=== PATIENT | female | born 1990 | race Caucasian/White ===

== ENCOUNTER 2025-02-03 10:45 | Outpatient (CLI) | payer BC, SELFPAY ==
[2025-02-05 16:04] LABS: HPV Source Vaginal
[2025-02-09 12:54] LABS: Pap Test Digital Imaging Done
== END 2025-02-03 10:46 | disposition home or self-care (01) ==
PROVIDERS: PCP Nurse Practitioner Family; Visit Provider Nurse Practitioner Family
DX: Z00.00 Encounter for general adult medical examination without abnormal findings (principal); L65.9 Nonscarring hair loss, unspecified; R03.0 Elevated blood-pressure reading, without diagnosis of hypertension; Z13.6 Encounter for screening for cardiovascular disorders; Z13.1 Encounter for screening for diabetes mellitus; Z11.51 Encounter for screening for human papillomavirus (HPV); Z12.4 Encounter for screening for malignant neoplasm of cervix
CPT/HCPCS: 80061; 82728; 82947; 84443; 85025; 87624; 87625; 88141; 88142; 88175

== ENCOUNTER 2025-02-20 14:27 | Outpatient (CLI) | payer BC, SELFPAY ==
--- NOTE | 2025-02-20 14:45 | CRLHL7_ITS ---
For Patients: As a result of the Cures Act, medical imaging exams and procedure reports are released immediately into your electronic medical record. You may view this report before your referring provider. If you have questions, please contact your health care provider. CLINICAL HISTORY: pulsatile tinnitus TECHNIQUE: The carotid circulations and the vertebral arteries in the neck were examined with hinkle-scale ultrasound, color-flow and Doppler spectral analysis. Degrees of stenosis were determined using SRU 2002 Consensus Panel Criteria. FINDINGS: Sonographic images demonstrate no evidence of atherosclerotic plaque formation or suspicious soft tissue mass. There was antegrade blood flow demonstrated within the vertebral arteries and the subclavian arteries demonstrated a normal triphasic waveform. The spectral Doppler tracings of the common carotid, internal and external carotid arteries demonstrate no abnormal turbulence or spectral broadening. There was no significant elevation of peak systolic blood flow which would indicate a hemodynamically-significant stenosis by SRU criteria. The ICA/CCA peak systolic velocity ratio measures 1.0 on the right and 1.2 on the left. IMPRESSION: Normal carotid ultrasound. Dictated by Mj Schwartz MD @ 02/20/2025 3:41:53 PM (Electronically Signed)
--- NOTE | 2025-02-20 15:30 | CRLHL7_ITS ---
For Patients: As a result of the Century Cures Act, medical imaging exams and procedure reports are released immediately into your electronic medical record. You may view this report before your referring provider. If you have questions, please contact your health care provider. INDICATION: Tinnitus TECHNIQUE: Non-contrast sagittal T1, axial FLAIR, FSE T2, DWI, posterior fossa CISS images provided. Supplemental post contrast T1 weighted axial and coronal high resolution images through the posterior fossa with fat saturation and post contrast whole head axial T1 weighted images submitted. No comparisons. 20 cc of Dotarem was administered intravenously. FINDINGS: The ventricles, sulci and gyri are of normal size, shape and contour for age. Midline structures are centrally located. No convincing evidence of suspicious intra- or extra-axial fluid collections. No regions of restricted diffusion. Expected flow-voids within the cavernous carotids and basilar artery. No suspicious masses within the internal auditory canals. No suspicious regions of abnormal parenchymal enhancement. Mild scattered foci of nonenhancing increased T2 signal in the white matter both cerebral hemispheres that is nonspecific. Nonenhancing opacification of the left mastoid air cells. There does appear to be some loss of normal septations within the left mastoid air cells. IMPRESSION: 1. No radiographic evidence of acute intracranial abnormalities. 2. Mild scattered supratentorial white matter change that is non-specific. Differential considerations include changes related to diabetes, hypertension, collagen vascular disease or migranous headaches. 3. Opacification of left mastoid air cells with loss of normal septation that may represent presence of benign inflammatory fluid or residual from prior mastoiditis. Dictated by Jj He MD @ 02/20/2025 7:29:01 PM (Electronically Signed)
== END 2025-02-20 14:28 | disposition home or self-care (01) ==
LOC: US 14:28
PROVIDERS: PCP Nurse Practitioner Family; Visit Provider Physician Assistant
DX: H93.A9 Pulsatile tinnitus, unspecified ear (principal); H93.19 Tinnitus, unspecified ear
CPT/HCPCS: 70553; 93880; A9575

== ENCOUNTER 2025-03-05 17:58 | Outpatient (CLI) | payer BC, SELFPAY ==
--- NOTE | 2025-03-05 18:15 | MR_ITS ---
Patient: JUANITA YATES Facility:?[facility] Patient ID:?[id number] Site Patient ID:?[id number]. Site :?[id number] Study:?MRI-Head Angio WO-03/05/2025 7:17:17 PM Ordering Physician:Deni Milan Final Report: EXAMINATION: MRA HEAD DATE: 03/05/2025 HISTORY: Patient with right foot drop. TECHNIQUE: 3D TOF MRA of the head was performed. COMPARISON: MRI 02/20/2025 FINDINGS: The intracranial segments of the right internal carotid artery are normal. The anterior communicating artery is seen. The visualized portions of the right middle and anterior cerebral arteries are normal. The intracranial segments of the left internal carotid artery are normal. The visualized portions of the left middle and anterior cerebral arteries are normal. The vertebral arteries are codominant. The visualized intracranial portions of the vertebral arteries are normal. The basilar artery is normal. The right posterior cerebral artery is normal. The left posterior cerebral artery is normal. IMPRESSION: Normal MRA of the head without proximal intracranial large vessel occlusion or intracranial aneurysms. Dictated by: Savanna Mccain MD @ 03/06/2025 08:57:39 Signed by:?Savanna Mccain MD @03/06/2025 8:57:39 AM (Electronic Signature)
== END 2025-03-05 17:59 | disposition home or self-care (01) ==
LOC: MRI 17:58
PROVIDERS: PCP Nurse Practitioner Family; Visit Provider Physician Assistant
DX: H93.13 Tinnitus, bilateral (principal)
CPT/HCPCS: 70544